=== PATIENT | female | born 1970 | race Caucasian/White ===

== ENCOUNTER 2021-09-01 19:43 | Emergency (ER) | payer MEDICAID ==
[~2021-09-01] VITALS: Ht 147.3 cm; Wt 49.8 kg
[2021-09-01] MEDS ORDERED: CEPHALEXIN 250MG CAPSULE PO ONE (22:15)
[2021-09-01] MEDS ORDERED: CEPH500T MT (22:22)
[2021-09-02 01:09] VITALS: BP 125/83
== END 2021-09-02 01:12 | disposition home or self-care (01) ==
LOC: ER 19:43
DX: L03.116 Cellulitis of left lower limb (principal); R03.0 Elevated blood-pressure reading, without diagnosis of hypertension; E11.9 Type 2 diabetes mellitus without complications; F84.0 Autistic disorder; H91.90 Unspecified hearing loss, unspecified ear
CPT/HCPCS: 99283

== ENCOUNTER 2023-08-08 23:10 | Emergency (ER) | payer MEDICAID, OTHER ==
[~2023-08-08] VITALS: Ht 149.9 cm; Wt 55.0 kg
[~2023-08-08 23:10] MED LIST: CEPH500T MT
[2023-08-08 23:15] VITALS: O2SAT 99
[2023-08-08] MEDS ORDERED: TETANUS, DIPHTHERIA, PERTUSSIS VAC/PF 0.5ML (>10YR OLD) IM ONE (23:30)
[2023-08-09] MEDS ORDERED: ACETAMINOPHEN 325MG TABLET PO ONE (00:45)
[2023-08-09] MEDS: TETANUS, DIPHTHERIA, PERTUSSIS VAC/PF 0.5ML (>10YR OLD) IM ONE (02:41)
[2023-08-09] MEDS: ACETAMINOPHEN 325MG TABLET PO NR (02:52)
[2023-08-09 04:00] VITALS: BP 136/52; PULSE 86; RESP 16; TEMP 98.6
== END 2023-08-09 04:00 | disposition home or self-care (01) ==
LOC: ER 23:10
DX: S01.01XA Laceration without foreign body of scalp, initial encounter (principal); S09.90XA Unspecified injury of head, initial encounter; E11.9 Type 2 diabetes mellitus without complications; W18.30XA Fall on same level, unspecified, initial encounter; Y93.89 Activity, other specified; Y92.89 Other specified places as the place of occurrence of the external cause; Y99.8 Other external cause status
CPT/HCPCS: 12001; 99285; 70450; 90715; 90471; Z7610 ×2